=== PATIENT | female | born 1970 | race American Indian/Alaskan Native ===

== ENCOUNTER 2021-03-15 13:44 | Emergency (ER) | payer OTHER ==
[2021-03-15 15:12] LABS: Bilirubin,Urine NEG (Negative); Blood,Urine NEG (Negative); Color,Urine Amber (Yellow); Mucus,Urine 3+ /HPF; Urobilinogen,Urine < 2.0 mg/dL (<2.0)
--- NOTE | 2021-03-15 15:28 | Emergency Department Report ---
ED General Adult HPI - General Chief complaint: Urogenital-Female Stated complaint: SYNCOPE/BLOOD IN URINE/KIDNEY INFECTION Time Seen by Provider: 03/15/21 14:50 Source: patient, EMS Mode of arrival: Stretcher Limitations: No Limitations - History of Present Illness Initial comments: 50-year-old female, no past medical history, presents to ED urgent care with near syncopal episode. Patient states, "I've been been having flulike symptoms." Patient states over the last 3 days she has been experiencing fatigue, lower back pain, urinary frequency, cough, shortness of breath, loss of appetite. Patient also reports loss of taste. Patient was seen at urgent care. Covid test was done at the urgent care and was negative. Patient had a near syncopal episode while there, and advised to come to the ED. Patient has not yet received her COVID-19 vaccine. -: days(s) (3) Quality: aching Consistency: intermittent Improves with: none Worsens with: movement Associated Symptoms: cough, loss of appetite, shortness of breath. denies: fever/chills, nausea/vomiting Treatments Prior to Arrival: none - Related Data Previous Rx's Medication Instructions Recorded Last Taken Type Naproxen [Naprosyn] 500 mg PO BID #20 tablet 03/15/21 Unknown Rx Ondansetron [Zofran Odt] 4 mg PO Q8HR PRN #20 tab.rapdis 03/15/21 Unknown Rx Allergies Allergy/AdvReac Type Severity Reaction Status Date / Time No Known Allergies Allergy Unverified 03/15/21 14:53 ED Review of Systems ROS: Stated complaint: SYNCOPE/BLOOD IN URINE/KIDNEY INFECTION Other details as noted in HPI Comment: All other systems reviewed and negative Constitutional: malaise. denies: fever ENT: other (Reports loss of taste) Respiratory: cough, shortness of breath Cardiovascular: denies: chest pain Gastrointestinal: nausea, vomiting. denies: abdominal pain, diarrhea Genitourinary: frequency. denies: dysuria Musculoskeletal: back pain ED Past Medical Hx - Past Medical History Previous Medical History?: No - Surgical History Past Surgical History?: No - Social History Smoking Status: Never Smoker Substance Use Type: None - Medications Home Medications: Home Medications Medication Instructions Recorded Confirmed Last Taken Type Naproxen [Naprosyn] 500 mg PO BID #20 tablet 03/15/21 Unknown Rx Ondansetron [Zofran Odt] 4 mg PO Q8HR PRN #20 tab.rapdis 03/15/21 Unknown Rx ED Physical Exam - General Limitations: No Limitations General appearance: alert, in no apparent distress - Head Head exam: Present: atraumatic, normocephalic - Eye Eye exam: Present: normal appearance, EOMI - ENT ENT exam: Present: mucous membranes moist - Neck Neck exam: Present: normal inspection - Respiratory Respiratory exam: Present: normal lung sounds bilaterally. Absent: respiratory distress - Cardiovascular Cardiovascular Exam: Present: regular rate, normal rhythm - GI/Abdominal GI/Abdominal exam: Present: soft. Absent: distended, tenderness - Extremities Exam Extremities exam: Present: normal inspection - Back Exam Back exam: Absent: CVA tenderness (R), CVA tenderness (L) - Neurological Exam Neurological exam: Present: alert, oriented X3 - Psychiatric Psychiatric exam: Present: normal affect, normal mood - Skin Skin exam: Present: warm, dry, intact, normal color ED Course Vital Signs 03/15/21 03/15/21 03/15/21 14:31 14:45 15:00 Temperature 98.2 F Pulse Rate 76 78 Respiratory 20 12 Rate Blood Pressure 129/88 129/88 129/88 O2 Sat by Pulse 96 96 94 Oximetry 03/15/21 03/15/21 03/15/21 15:15 15:30 15:45 Temperature Pulse Rate Respiratory Rate Blood Pressure 120/78 120/78 138/77 O2 Sat by Pulse 98 94 97 Oximetry 03/15/21 03/15/21 03/15/21 16:00 16:15 16:30 Temperature Pulse Rate 75 77 64 Respiratory 23 18 18 Rate Blood Pressure 121/78 118/73 118/73 O2 Sat by Pulse 96 93 97 Oximetry 03/15/21 03/15/21 03/15/21 16:45 17:00 17:15 Temperature Pulse Rate 62 66 71 Respiratory 15 20 17 Rate Blood Pressure 135/84 135/84 133/77 O2 Sat by Pulse 92 94 93 Oximetry 03/15/21 03/15/21 18:19 18:43 Temperature 98.2 F Pulse Rate 65 Respiratory 22 Rate Blood Pressure 133/77 O2 Sat by Pulse 97 Oximetry ED Medical Decision Making - Lab Data Result diagrams: 03/15/21 16:03/15/21 16:09 - Radiology Data Radiology results: report reviewed, image reviewed - Medical Decision Making 50-year-old female presents to ED with flulike symptoms and syncopal episode from urgent care. Patient states she had a negative Covid test at the urgent care facility. Here, vital signs are normal. Labs are unremarkable. Chest x- ray is normal. Patient slightly orthostatic, she was given 1 L bolus of fluids and Toradol for her lower back pain. UA is negative for infection, no CVA tenderness on exam. Patient reports loss of taste. Patient stable for discharge however I have informed her to obtain repeat COVID-19 testing. Outpatient follow-up advised, return precautions given. - Differential Diagnosis UTI, pyelonephritis, pneumonia, COVID-19 Critical care attestation.: If time is entered above; I have spent that time in minutes in the direct care of this critically ill patient, excluding procedure time. ED Disposition Clinical Impression: Near syncope, Viral illness Disposition: DC- TO HOME OR SELFCARE Is pt being admited?: No Condition: Stable Instructions: Viral Illness, Adult Additional Instructions: Please obtain repeat COVID-19 testing. Quarantine as necessary. Prescriptions: Naproxen [Naprosyn] 500 mg PO BID #20 tablet Ondansetron [Zofran Odt] 4 mg PO Q8HR PRN #20 tab.rapdis PRN Reason: Vomiting Referrals: PRIMARY CARE, [Primary Care Provider] - 3-5 Days Time of Disposition: 18:22
[2021-03-15] MEDS ORDERED: SODIUM CHLORIDE 0.9% 1000 ML 1,000 ML IV ONE (16:04)
[2021-03-15] MEDS ORDERED: KETOROLAC 30 MG/1 ML INJ IV ONE (16:04)
--- NOTE | 2021-03-15 16:09 | XRay Report ---
XR chest 1V ap INDICATION / CLINICAL INFORMATION: cough COMPARISON: None available. FINDINGS: SUPPORT DEVICES: None. HEART / MEDIASTINUM: No significant abnormality. LUNGS / PLEURA: Lungs are clear. Costophrenic sulci are sharp. No pneumothorax. ADDITIONAL FINDINGS: No significant additional findings. IMPRESSION: 1. No acute findings. Signer Name: Ge Gan MD Signed: 03/15/2021 4:05 PM Workstation Name: [id number]
[2021-03-15 16:25] LABS: Basophils % (Auto) 0.4 % (0.0-1.8); Eosinophils % (Auto) 0.2 % (0.0-4.3); Hematocrit 41.4 % (30.3-42.9); Hemoglobin 14.1 gm/dl (10.1-14.3); Lymphocytes # (Auto) 1.6 K/mm3 (1.2-5.4); Lymphocytes % (Auto) 26.5 % (13.4-35.0); Mean Corpuscular HGB Conc 34 % (30-34); Mean Corpuscular Volume 90 fl (79-97); Monocytes # (Auto) 0.4 K/mm3 (0.0-0.8); Monocytes % (Auto) 7.3 % (0.0-7.3); Platelet Count 200 K/mm3 (140-440); Red Blood Count 4.58 M/mm3 (3.65-5.03); Red Cell Distribution Width 15.1 % (13.2-15.2)
[2021-03-15 17:03] LABS: Alanine Aminotransferase 40 units/L (7-56); Albumin 4.7 g/dL (3.9-5); BUN/Creatinine Ratio 14; Blood Urea Nitrogen 11 mg/dL (7-17); Calcium 9.1 mg/dL (8.4-10.2); Hemolysis Index 0
[2021-03-15 17:34] LABS: Bilirubin,Direct < 0.2 mg/dL (0-0.2)
[2021-03-15 20:59] VITALS: BP 118/56
--- NOTE | 2021-03-16 13:55 | Electrocardiograph Report ---
[facility] Test Date: 2021-03-15 Test Time: 17:52:37 Pat Name: ELROY NEGRETE Department: Room: Gender: F Supervisor Word Processing: KEYONA : 1970 Requested By: DENISE LEARY Order Number: [id number] Reading MD: Jt Castellanos Measurements Intervals [place] Rate: 65 P: 17 NM: 132 QRS: 43 QRSD: 81 T: 259 QT: 391 QTc: 408 Interpretive Statements Sinus rhythm Nonspecific diffuse T wave abnormality No previous ECG available for comparison Electronically Signed On 03-16-2021 13:55:03 EDT by Jt Castellanos
== END 2021-03-15 18:46 | disposition home or self-care (01) ==
LOC: ED 13:44
DX: R55 Syncope and collapse (principal); B34.9 Viral infection, unspecified; Z79.899 Other long term (current) drug therapy
CPT/HCPCS: 36415; 71045; 80048; 80076; 81001; 84484; 85025; 93005; 96361; 96374; 99284; J1885; J7030